=== PATIENT | female | born 1960 ===

== ENCOUNTER 2018-11-07 09:43 | Emergency (ER) | payer MEDICAID ==
[2018-11-07] MEDS ORDERED: Sodium Chloride 0.9% 1,000 ML IV STA (10:06)
[2018-11-07] MEDS ORDERED: Dexamethasone 4 mg/1 ml IVP STA (10:07)
[2018-11-07 10:50] LABS: BASO # 0.1 K/uL (0.0-0.2); BASO % 0.4 % (0.0-2.0); EOS % 0.3 % (0.0-4.0); HEMOGLOBIN 13.3 g/dL (11.0-16.0); LYMPH # 2.5 K/uL (1.0-4.3); LYMPH % 15.6 % (20.0-40.0); MEAN CELL VOLUME 80.4 fL (81.0-99.0); MEAN CORPUSCULAR HEMOGLOBIN 27.3 pg (27.0-31.0); MEAN PLATELET VOLUME 8.4 fL (7.2-11.7); MONO # 1.2 K/uL (0.0-0.8); MONO % 7.5 % (0.0-10.0); NEUT # 12.3 K/uL (1.8-7.0); NEUT % 76.2 % (50.0-75.0); RBC 4.86 Mil/uL (3.80-5.20); RED CELL DISTRIBUTION WIDTH 13.3 % (11.5-14.5); WHITE BLOOD COUNT 16.2 K/uL (4.8-10.8)
[2018-11-07] MEDS ORDERED: Dexamethasone 4 mg/1 ml ONE (10:51)
[2018-11-07] MEDS ORDERED: Sodium Chloride 0.9% 1,000 ML ONE (10:52)
[2018-11-07 11:03] LABS: ALBUMIN 4.5 g/dL (3.5-5.0); ALT/SGPT 14 U/L (9-52); AST/SGOT 26 U/L (14-36); BLOOD UREA NITROGEN 13 mg/dL (7-17); CALCIUM 9.7 mg/dl (8.6-10.4); GFR NON-AFRICAN AMERICAN > 60
[2018-11-07 11:05] LABS: INFLUENZA A B NEGATIVE FOR FLU A/B (NEGATIVE)
[2018-11-07 11:38] LABS: SQUAMOUS EPITHIAL 8 /hpf (0-5); URINE BACTERIA OCC (<OCC); URINE BILIRUBIN NEGATIVE (NEGATIVE); URINE BLOOD 1+ (NEGATIVE); URINE CLARITY Hazy (Clear); URINE COLOR Yellow (YELLOW); URINE GLUCOSE (UA) NORMAL (Normal); URINE LEUKOCYTE ESTERASE TRACE Leu/uL (Negative); URINE PROTEIN 2+ mg/dL (NEGATIVE); URINE UROBILINOGEN NORMAL mg/dL (0.2-1.0)
--- NOTE | 2018-11-07 12:20 | C.PDOC ---
History Of Present Illness 58-year-old female presents to the ED for evaluation of sore throat, right ear pain, fever, nausea and vomiting which began 3 days ago. Patient denies cough, abdominal pain, diarrhea. Time Seen by Provider: 11/07/18 09:57 Chief Complaint (Nursing): ENT Problem History Per: Patient History/Exam Limitations: None Onset/Duration Of Symptoms: Days (3) Current Symptoms Are (Timing): Still Present Past Medical History Reviewed: Historical Data, Nursing Documentation, Vital Signs Vital Signs: Last Vital Signs Temp 99.3 F 11/07/18 09:46 Pulse 82 11/07/18 09:46 Resp 18 11/07/18 09:46 BP 116/76 11/07/18 09:46 Pulse Ox 97 11/07/18 09:46 Primary Care Provider: Chin White - Medical History PMH: HTN Surgical History: Tonsillectomy Family History: States: Unknown Family Hx - Social History Hx Alcohol Use: No Hx Substance Use: No Review Of Systems Constitutional: Positive for: Fever ENT: Positive for: Ear Pain (right), Throat Pain Respiratory: Negative for: Cough Gastrointestinal: Positive for: Nausea, Vomiting. Negative for: Abdominal Pain, Diarrhea Physical Exam - Physical Exam Appears: Non-toxic, No Acute Distress Skin: Normal Color, Warm, Dry Head: Atraumatic, Normacephalic Eye(s): bilateral: Normal Inspection Ear(s): Bilateral: Normal Nose: Normal, No Discharge Oral Mucosa: Moist Throat: Erythema, Exudate Neck: Supple Chest: Symmetrical, No Deformity, No Tenderness Cardiovascular: Rhythm Regular, No Murmur Respiratory: Normal Breath Sounds, No Rales, No Rhonchi, No Wheezing Gastrointestinal/Abdominal: Soft, No Tenderness, No Guarding, No Rebound Extremity: Normal ROM, Capillary Refill (less than 2 seconds ) Neurological/Psych: Oriented x3, Normal Speech, Normal Cognition ED Course And Treatment - Laboratory Results Result Diagrams: 11/07/18 10:43 11/07/18 10:43 Lab Results: Total Bilirubin 0.6 mg/dL (0.2-1.3) 11/07/18 10:43 AST 26 U/L (14-36) 11/07/18 10:43 ALT 14 U/L (9-52) 11/07/18 10:43 Alkaline Phosphatase 96 U/L (38-126) 11/07/18 10:43 Total Protein 8.9 g/dL (6.3-8.3) H 11/07/18 10:43 Albumin 4.5 g/dL (3.5-5.0) 11/07/18 10:43 Globulin 4.4 gm/dL (2.2-3.9) H 11/07/18 10:43 Albumin/Globulin Ratio 1.0 (1.0-2.1) 11/07/18 10:43 Urine Color Yellow (YELLOW) 11/07/18 11:30 Urine Clarity Hazy (Clear) 11/07/18 11:30 Urine pH 7.0 (5.0-8.0) 11/07/18 11:30 Ur Specific Hayden 1.009 (1.003-1.030) 11/07/18 11:30 Urine Protein 2+ mg/dL (NEGATIVE) H 11/07/18 11:30 Urine Glucose (UA) Normal mg/dL (Normal) 11/07/18 11:30 Urine Ketones Trace mg/dL (NEGATIVE) 11/07/18 11:30 Urine Blood 1+ (NEGATIVE) H 11/07/18 11:30 Urine Nitrate Negative (NEGATIVE) 11/07/18 11:30 Urine Bilirubin Negative (NEGATIVE) 11/07/18 11:30 Urine Urobilinogen Normal mg/dL (0.2-1.0) 11/07/18 11:30 Ur Leukocyte Esterase Trace Terrence/uL (Negative) 11/07/18 11:30 Urine WBC (Auto) 2 /hpf (0-5) 11/07/18 11:30 Urine RBC (Auto) 6 /hpf (0-3) H 11/07/18 11:30 Ur Squamous Epith Cells 8 /hpf (0-5) H 11/07/18 11:30 Urine Bacteria Occ (<OCC) H 11/07/18 11:30 O2 Sat by Pulse Oximetry: 97 (on RA) Pulse Ox Interpretation: Normal - Other Rad CXR X-Ray: Viewed By Me, Read By Radiologist Interpretation: Date of service: 11/07/2018. PROCEDURE: CHEST RADIOGRAPH, 1 VIEW. HISTORY: fever. COMPARISON: None available. FINDINGS: LUNGS: Clear. PLEURA: No pneumothorax or pleural fluid seen. CARDIOVASCULAR: No aortic atherosclerotic calcification present. Normal. OSSEOUS STRUCTURES: No significant abnormalities. VISUALIZED UPPER ABDOMEN: Normal. OTHER FINDINGS: None. IMPRESSION: No active disease. Progress Note: Bloodwork, urinalysis, CXR ordered and reviewed. Flu swab and Rapid Strep test ordered, both resulted negative. Decardon IVP, Toradol IVP, Zofran IVP and IV Fluids given. Results and indicative of leukocytosis. On reassessment, patient is resting comfortably, showing no signs of distress, and is stable for discharge with Rx. Patient is advised to follow up with PMD within 1-2 days for further evaluation. Disposition - Disposition Disposition: HOME/ ROUTINE Disposition Time: 12:19 Condition: STABLE Additional Instructions: Follow up with PMD within 1-2 days. Return to ED if feel worse. 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 - Scribe Statement The provider has reviewed the documentation as recorded by the Scribe (Xenia Garcia) All medical record entries made by the Scribe were at my direction and personally dictated by me. I have reviewed the chart and agree that the record accurately reflects my personal performance of the history, physical exam, [facility] decision making, and the department course for this patient. I have also personally directed, reviewed, and agree with the discharge instructions and disposition.
[2018-11-07 12:33] VITALS: BP 135/77; PULSE 78; RESP 15; TEMP 99.7
--- NOTE | 2018-11-07 17:39 | RAD ---
Date of service: 11/07/2018 PROCEDURE: CHEST RADIOGRAPH, 1 VIEW HISTORY: fever COMPARISON: None available. FINDINGS: LUNGS: Clear. PLEURA: No pneumothorax or pleural fluid seen. CARDIOVASCULAR: No aortic atherosclerotic calcification present. Normal. OSSEOUS STRUCTURES: No significant abnormalities. VISUALIZED UPPER ABDOMEN: Normal. OTHER FINDINGS: None. IMPRESSION: No active disease.
[2018-11-07 21:16] VITALS: O2SAT 97
== END 2018-11-07 12:31 | disposition home or self-care (01) ==
LOC: C.ER 09:43
DX: J02.9 Acute pharyngitis, unspecified (principal); I10 Essential (primary) hypertension
CPT/HCPCS: 71045; 80053; 81001; 85025; 87070; 87430; 87804; 96361; 96374; 96375; 99284; J1100; J1885; J2405; J7030